=== PATIENT | male | born 1940 | race Caucasian/White ===

== ENCOUNTER → 2017-06-13 | Outpatient (CLI) | payer MEDICARE, BC ==
[~2017-06-13] MED LIST: APIX5TAB PO; DIGO0.12 PO; LISI10TA3 PO
[2017-06-13 09:23] LABS: BASOPHIL % 0.9 % (0.0-2.0); EOSINOPHIL # 0.2 TH/MM3 (0-0.4); EOSINOPHIL % 4.4 % (0.0-4.0); HEMATOCRIT 41.4 % (39.0-51.0); HEMOGLOBIN 13.4 GM/DL (13.0-17.0); LYMPH % 22.6 % (9.0-44.0); LYMPHOCYTE # 1.1 TH/MM3 (1.0-4.8); MEAN CELL VOLUME 84.4 FL (80.0-100.0); MEAN CORPUSCULAR HEMOGLOBIN 27.4 PG (27.0-34.0); MEAN CORPUSCULAR HGB CONC 32.5 % (32.0-36.0); MEAN PLATELET VOLUME 9.5 FL (7.0-11.0); MONO % 10.7 % (0.0-8.0); MONOCYTE # 0.5 TH/MM3 (0-0.9); NEUT % 61.4 % (16.0-70.0); PLATELET COUNT 173 TH/MM3 (150-450); RED CELL DISTRIBUTION WIDTH 14.8 % (11.6-17.2); WHITE BLOOD COUNT 4.9 TH/MM3 (4.0-11.0)
[2017-06-13 09:34] LABS: INTERNATIONAL NORMALIZED RATIO 1.1 RATIO; PROTHROMBIN TIME - PATIENT 10.8 SEC (9.8-11.6)
[2017-06-13 09:40] LABS: BILIRUBIN, URINE NEG (NEG); BLOOD, URINE NEG (NEG); GLUCOSE,URINE NEG (NEG); HYALINE CAST, URINE 4 /lpf (RARE); KETONE, URINE NEG (NEG); MUCUS URINE FEW /lpf (OCC); NITRITE,URINE NEG (NEG); SQUAMOUS EPITHELIAL CELL URINE <1 /hpf (0-5); URINE COLOR YELLOW (YELLW/STRAW); URINE LEUKOCYTE ESTERASE TRACE (NEG)
[2017-06-13 09:46] LABS: CALCIUM 8.5 MG/DL (8.5-10.1); CREATININE 0.99 MG/DL (0.60-1.30)
--- NOTE | 2017-06-14 16:17 | EKG ---
Date Performed: 06/13/2017 Time Performed: 08:16:35 PTAGE: 77 years EKG: ELECTRONIC VENTRICULAR PACEMAKER ABNORMAL RHYTHM ECG NO PREVIOUS TRACING DOCTOR: Errol Melendez Interpretating Date/Time 06/14/2017 16:15:46
== END ==
LOC: CPRE 07:57
PROVIDERS: ATTEND Orthopaedic Surgery Orthopaedic Surgery of the Spine
DX: Z01.812 Encounter for preprocedural laboratory examination (principal); Z01.810 Encounter for preprocedural cardiovascular examination; M17.11 Unilateral primary osteoarthritis, right knee; M79.609 Pain in unspecified limb; R94.31 Abnormal electrocardiogram [ECG] [EKG]; Z79.01 Long term (current) use of anticoagulants
CPT/HCPCS: 36415; 80048; 81001; 85025; 85610; 85730; 93005

== ENCOUNTER 2017-06-28 05:42 | Inpatient (IN) | payer MEDICARE, BC ==
[~2017-06-28] VITALS: Ht 177.8 cm; Wt 123.9 kg
[2017-06-28] MEDS ORDERED: METOPROLOL TARTRATE 25 MG TAB PO PRN (06:15)
[2017-06-28] MEDS ORDERED: POVIDONE IODINE 5% (ANTISEPSIS KIT) 4 APPLICATIONS EACH NARE PRN (06:15)
[2017-06-28] MEDS ORDERED: CEFAZOLIN INJ 2,000 MG in SODIUM CHLORIDE 0.9% INJ 100 ML IV SCH (06:15)
[2017-06-28] MEDS ORDERED: LACTATED RINGER'S 1000 ML IV PRN (06:15)
[2017-06-28] MEDS ORDERED: EXPAREL PERI-ARTICULAR INJECTION (TOTAL VOL. 60 ML) P-ARTICULR SCH ×4 (06:15→09:00)
[2017-06-28] MEDS ORDERED: SODIUM CHLORID 0.9% 500 ML IV PRN (06:15)
[2017-06-28] MEDS ORDERED: CHLORHEXIDINE GLUCONATE 4% SOLN 120 ML BTL TOPICAL SCH (06:15)
[2017-06-28] MEDS ORDERED: CHLORHEXIDINE GLUCONATE 2 % 1 PACK (2 CLOTHS) TOPICAL PRN (06:15)
[2017-06-28] MEDS ORDERED: VANCOMYCIN 1000 MG/NS 250 ML (for <70 kg) IV SCH ×2 (06:15)
[2017-06-28] MEDS ORDERED: VANCOMYCIN 1 GM/200 ML INJ 200 ML IV ONE (06:30)
[2017-06-28 06:45] VITALS: PULSE 60
[2017-06-28] MEDS ORDERED: BUPIVACAINE PF 0.75% DEX-WATER INJ 2 ML AMP ONE (07:06)
[2017-06-28] MEDS ORDERED: LIDOCAINE HCL 1% PF 5 ML AMPULE ONE (07:06)
[2017-06-28] MEDS ORDERED: MIDAZOLAM HCL 2 MG/2 ML VIAL ONE (07:56)
[2017-06-28] MEDS ORDERED: DEXAMETHASONE SOD PHOS 4 MG/ML VIAL ONE (07:56)
[2017-06-28] MEDS ORDERED: BUPIVACAINE LIPOSOME PF 1.3% 20 ML VIAL ONE (07:57)
[2017-06-28] MEDS ORDERED: GENTAMICIN SULFATE 80 MG/2 ML VIAL ONE (08:12)
[2017-06-28] MEDS ORDERED: BUPIVACAINE/EPINEPHRINE 0.25% 50 ML VIAL ONE (08:12)
[2017-06-28] MEDS ORDERED: ACETAMINOPHEN 1000 MG/100 ML 100 ML IV ONE (08:28)
[2017-06-28] MEDS ORDERED: FAMOTIDINE 20 MG/2 ML VIAL ONE (08:28)
[2017-06-28] MEDS ORDERED: TRANEXAMIC ACID IV SCH (09:00)
[2017-06-28] MEDS ORDERED: SODIUM CHLORIDE 0.9% IV SCH (09:00)
[2017-06-28] MEDS ORDERED: SUGAMMADEX SODIUM 200 MG/2 ML VIAL IV PUSH ONE (11:58)
[2017-06-28] MEDS ORDERED: PHENYLEPH/NS 1000 MCG/10 ML SYR IV ONE (12:00)
[2017-06-28] MEDS ORDERED: ONDANSETRON HCL 4 MG/2 ML VIAL IV PUSH ONE (12:00)
[2017-06-28] MEDS ORDERED: DEXAMETHASONE SOD PHOS 4 MG/ML VIAL IV ONE (12:00)
[2017-06-28] MEDS ORDERED: ROCURONIUM INJ 50 MG/5 ML SYRINGE IV PUSH ONE (12:00)
[2017-06-28] MEDS ORDERED: LIDOCAINE HCL 1% PF 5 ML SYRINGE OTHER ONE (12:00)
[2017-06-28] MEDS ORDERED: PROPOFOL 200 MG/20 ML AMP IV ONE (12:00)
[2017-06-28] MEDS ORDERED: LACTATED RINGER'S 1000 ML INJ 1,000 ML IV ONE (12:00)
[2017-06-28] MEDS ORDERED: DO NOT ADM ANY ANTICOAGULANT DRUGS PRN (12:23)
[2017-06-28] MEDS ORDERED: MISCELLANEOUS NURSING INFORMATION XX PRN (12:30)
[2017-06-28] MEDS ORDERED: NALOXONE HCL 0.4 MG/ML AMP IV PUSH PRN (12:30)
[2017-06-28] MEDS ORDERED: ASPIRIN EC 81 MG TABEC PO ONE (12:30)
[2017-06-28] MEDS ORDERED: TEMAZEPAM 15 MG CAP PO PRN (12:30)
[2017-06-28] MEDS ORDERED: MISCELLANEOUS PHARMACY INFORMATION XX ONE (12:30)
[2017-06-28] MEDS ORDERED: MORPHINE SULFATE 8 MG/ML INJ IM PRN (12:30)
[2017-06-28] MEDS ORDERED: Post-op Orders (for Pharmacy) XX ONE (12:30)
[2017-06-28] MEDS ORDERED: *morphine SULFATE 8 MG/ML PERIprocedure ONLY ONE (12:31)
--- NOTE | 2017-06-28 12:31 | PD.OP ---
cc: Asif Hui MD Operative Report Date of Surgery: Jun 28, 2017 Preoperative Diagnosis: Osteoarthritis right knee. Valgus deformity right knee. Loose body right knee, large Postoperative Diagnosis: Same Procedure: Right total knee replacement arthroplasty, posterior stabilized component Anesthesia: Gen. Surgeon: Asif Hui [employer] Teacher(s): RANDI Moy Operation and Findings: EBL: 100 cc INDICATION: This patient presents with long-standing arthritis of the knee. There is a significant valgus deformity of 13 and evidence of a very large intra-articular loose body in the suprapatellar pouch Attachment record documents conservative measures. The patient now presents for surgical treatment. NOTE: Shabnam Moy PA-C was present for the entire surgical procedure as my first officer. In my medical opinion her skill and care was necessary for proper management of this patient. TOURNIQUET TIME: 65 minutes COMPANY: [employer] FEMUR: Size 8, right, posterior stabilized TIBIA: Size 9, fixed bearing PATELLA: 38 mm POLYETHYLENE INSERT: 10 mm PROCEDURE: This patient was brought the operating room and anesthetized in the supine position. The patient was positioned supine on the table. The tourniquet was placed about the thigh, and the leg was scrubbed with alcohol followed by Hibiclens followed by ChloraPrep and draped sterilely. A timeout was done, and antibiotics were given. After exsanguination the tourniquet was inflated to 250 mmHg. An anterior incision was made and a median parapatellar arthrotomy was performed. The patella was released laterally and subluxed allowing freehand cut of the patella which was then sized. A metal cap was placed over the exposed patellar surface for protection. There was a very large intra-articular loose body which was resected. It measured over his 5 cm long by 3-1/2 cm wide and 2-1/2 mm in thickness. There were multiple other loose bodies also removed. A company pilot hole was placed in the distal femur allowing a 6 valgus cut removing 10 mm from the distal femur. Anterior posterior and chamfer cuts were made. The posterior stabilize osteotomy was made. The attention was directed to the tibia. Retractors were positioned. The external alignment guide was used allowing the lateral tibia to be used as referencing guide and cut utilizing an oscillating saw taking care to avoid any injury to the surrounding soft tissues. This was sized properly. Trial reduction showed that the insert fit nicely. The patient had range of motion extension 0 flexion 125. A medial release not necessary. The bony surfaces prepared. On the back table 2 packets of methylmethacrylate were mixed. The components were cemented. Excess cement was removed. The tourniquet let down and hemostasis was controlled. The final plastic insert was inserted. Range of motion was the same as previously noted. Local anesthesia was used for a circumferential block. The arthrotomy was repaired with interrupted #1 Vicryl suture, subcutaneous tissue 2-0 Vicryl suture and skin with metallic jeremiah A sterile dressing was applied. Sponge counts, needle counts and instrument counts were all correct. The patient tolerated procedure well and was taken to recovery in satisfactory condition. FINDINGS: There was evidence of a significant valgus deformity of the knee. This was corrected with the osteotomies and soft tissue releases. Alignment was satisfactory. There was no complication that was appreciated. Asif Hui MD Jun 28, 2017 12:31
[2017-06-28] MEDS ORDERED: APIX5TAB PO (12:34)
[2017-06-28] MEDS ORDERED: OXYC1TAB63 PO (12:34)
[2017-06-28] MEDS ORDERED: APIX2.5T PO (12:39)
[2017-06-28] MEDS: LACTATED RINGER'S 1000 ML INJ 1,000 ML IV SCH (13:00)
--- NOTE | 2017-06-28 13:24 | RADRPT ---
EXAM DATE/TIME: 06/28/2017 13:00 [facility] COMPARISON: No previous studies available for comparison. INDICATIONS : Post-op right total knee. MEDICAL HISTORY : None. SURGICAL HISTORY : None. ENCOUNTER: Initial ACUITY: 1 day PAIN SCORE: 0/10 LOCATION: Right knee FINDINGS: Patient has just had a right total knee arthroplasty. No fractures are demonstrated. Alignment appear s normal. No evidence of hardware failure or loosening. CONCLUSION: Right total knee arthroplasty without evidence of an acute complication. Titus Messer MD on June 28, 2017 at 13:21 Board Certified Radiologist. This report was verified electronically.
[2017-06-28] MEDS: oxyCODONE/ACETAMINOPHEN 5 MG/325 MG TAB PO PRN ×2 (15:02→20:01)
[2017-06-28 16:00] VITALS: BP 167/79; PULSE 63; RESP 18; TEMP 98; O2SAT 95
[2017-06-28 19:18] VITALS: BP 117/83; PULSE 64; RESP 18; TEMP 97.3; O2SAT 96
[2017-06-28] MEDS: SENNOSIDES 8.6 MG TAB PO SCH (20:00)
[2017-06-28] MEDS: MAGNESIUM HYDROXIDE SUSP 30 ML CUP PO SCH (20:00)
[2017-06-28 20:11] VITALS: O2SAT 95
[2017-06-28] MEDS ORDERED: ASPIRIN EC 81 MG TABEC PO SCH (21:00)
[2017-06-28 23:54] VITALS: BP 136/64; PULSE 62; RESP 18; TEMP 97.9; O2SAT 96
[2017-06-29] VITALS (8 sets, daily range): BP systolic 114–162; BP diastolic 57–79; PULSE 59–66; RESP 16–18; TEMP 97.4–98.1; O2SAT 95–99
[2017-06-29] MEDS: LACTATED RINGER'S 1000 ML INJ 1,000 ML IV SCH ×2 (01:11→13:23)
[2017-06-29 05:40] LABS: HEMATOCRIT 36.3 % (39.0-51.0); HEMOGLOBIN 11.8 GM/DL (13.0-17.0)
[2017-06-29] MEDS: LISINOPRIL 10 MG TAB PO SCH (07:48)
[2017-06-29] MEDS: DIGOXIN 0.125 MG TAB PO SCH (07:49)
[2017-06-29] MEDS: APIXABAN 2.5 MG TABLET PO SCH ×5 (07:49→20:11)
[2017-06-29] MEDS: MAGNESIUM HYDROXIDE SUSP 30 ML CUP PO SCH ×2 (07:49→20:11)
[2017-06-29] MEDS: oxyCODONE/ACETAMINOPHEN 5 MG/325 MG TAB PO PRN ×4 (07:51→20:12)
[2017-06-29] MEDS ORDERED: CPMMACHINE (08:14)
[2017-06-29] MEDS ORDERED: WALKER WHEELS/F1 MIS (08:15)
[2017-06-29] MEDS ORDERED: COMMODE 3-IN-11 MIS (08:16)
--- NOTE | 2017-06-29 08:18 | HHI.FF ---
Face to Face Verification Diagnosis: (1) Osteoarthritis of right knee Physical Therapy Gait training, Safety evaluation, Transfer training, bed to chair Knee: Total knee, Protocol: Right, Full weight bearing Canvas Knee Splint: When in bed & 2 pillows btw thighs Right LE Weight Bearing: WB as tolerated Additional Instructions PT 3-4x/week for 2 weeks. WBAT Right LE. TKA protocol. CPM bid as tolerated. Begin at 60 flexion with goal of 100 flexion. CKS when in bed for 3-4 weeks. Nursing RN Days per Week: 4 x Week(s): 1 RN: 3 days/week x 2 weeks (THis is incorrect - RN for 2x/week for 1 weeks IS correct. I do not know why this order is prepopulating) Dressing Changes: Do not change dressing Additional Instructions 4x/wk for 1 week. Vitals assessment. Dressing assessment - do not change unless saturated. IF saturated then dry dressing changes daily (clean with alcohol and apply coverderm dressing.) I have seen patient Virgil Poole on 06/29/17. My clinical findings support the need for the requested home health care services because: Limited ability to care for self High risk of falls I certify that my clinical findings support that this patient is homebound because: Post-op weakness Unsteady gait/balance Shabnam Moy Jun 29, 2017 08:18
--- NOTE | 2017-06-29 08:19 | HHI.DS ---
Discharge Summary Admission Date Jun 28, 2017 at 05:42 Discharge Date: Jun 30, 2017 Admitting Diagnosis see below Diagnosis: (1) Osteoarthritis of right knee Diagnosis: Principal ICD Codes: M17.11 - Unilateral primary osteoarthritis, right knee Procedures Right total knee arthroplasty Brief History This is a 77 year old male patient with increased right knee pain over the last 1 1/2 years. He had a previous knee fracture 40 years ago, treated surgically. He did well until a year ago when his knee pain began to increase and he noticed a worsening angulation to the knee. He sought out treatment. Xrays were taken showing moderate to severe arthritis. He began using a cane. He was given a cortisone injection 03/2017. He could not take NSAIDs from being on Eliquis. Eventually surgical treatment was recommended in the form of right total knee arthroplasty. He agreed and now presents for the above procedure. CBC/BMP: 06/29/17 0414 Significant Findings Laboratory Tests Test 06/29/17 04:14 Hemoglobin 11.8 GM/DL (13.0-17.0) Hematocrit 36.3 % (39.0-51.0) Hospital Course Surgical treatment was performed on the day of admission without complication. He recovered well in PACU and was transferred to the orthopaedic floor. Pain was controlled with IV and oral medications. DVT prophylaxis was initiated with Eliquis 2.5mg as he was taking this preoperatively. He struggled with some increased postoperative bleeding at the incision but that improved. He was compliant with physical therapy and all TKA precautions including use of his splint and CPM machine. After 2 days he was found to be stable and discharged home with home health care. He was educated to pursue a high fiber diet, to ice the operative site 3-5 times a day for the next 5 days, and to continue his physical therapy. He was given prescriptions for Percocet 5mg and Eliquis 2.5mg BID. Pt Condition on Discharge: Stable Discharge Disposition: Disch w/ Home Health Serv Discharge Instructions Diet Instructions: As Tolerated, No Restrictions, High Fiber Diet Activities You Can Perform: Weight Bearing as Nicole Activities to Avoid: Strenuous Activity New Medications: Commode 3-in-1 (Commode 3-in-1) 1 Mis Mis EA .XX DIRECTED, #1 0 Refills CPM-Continuous Passive Motion Machine (CPM-Continuous Passive Motion Machine) 1 Ea Device EA .XX DIRECTED, #1 0 Refills Walker with Front Wheels (Walker with Front Wheels) 1 Mis Mis EA .XX DIRECTED, #1 0 Refills Apixaban (Eliquis) 2.5 Mg Tab 2.5 MG PO BID for Prevent Blood Clot, #10 TAB After 5 days resume preoperative dosage Oxycodone HCl/Acetaminophen (Oxycodone-Acetaminophen 5-325) 5 Mg-325 Mg Tablet 1 TAB PO Q4H PRN for Pain, #42 TAB Continued Medications: Digoxin (Digoxin) 0.125 Mg Tab 0.125 MG PO DAILY for Regulate Heart Beat, #30 TAB 0 Refills Lisinopril (Lisinopril) 10 Mg Tab 10 MG PO DAILY, #30 TAB 0 Refills Shabnam Moy Jun 29, 2017 08:19
--- NOTE | 2017-06-29 08:19 | HHI.DCPOC ---
Discharge Care Plan Diagnosis: (1) Osteoarthritis of right knee Your Health Problems Are: Difficulty with ADL Incision/Drains Swelling Bleeding Tendency Goals to Promote Your Health * To prevent worsening of your condition and complications * To maintain your health at the optimal level Directions to Meet Your Goals Take your medications as prescribed Follow your dietary instruction Follow activity as directed Keep your appointments as scheduled Take your immunizations and boosters as scheduled If your symptoms worsen call your PCP, if no PCP go to Urgent Care Center or Emergency Room Smoking is Dangerous to Your Health. Avoid second hand smoke Call the 24-hour hour crisis hotline for domestic abuse at Shabnam Moy Jun 29, 2017 08:19
--- NOTE | 2017-06-29 13:15 | PD.ORT.PN ---
Subjective Subjective Remarks Doing well. Pain well controlled. Some concern because of increased bleeding and oozing last night and today. No new leg pain. Is already starting to lift his leg. States 'its so straight!'. He is pleased with his RLE alignment. Denies any new CP or SOB. Objective Vitals Vital Signs Date Time Temp Pulse Resp B/P (MAP) Pulse Ox O2 Delivery O2 Flow Rate FiO2 06/29/17 08:00 97.4 60 16 152/72 (98) 97 06/29/17 04:40 97.8 59 18 162/79 (106) 99 06/28/17 23:54 97.9 62 18 136/64 (88) 96 06/28/17 20:11 95 21 06/28/17 19:18 97.3 64 18 117/83 (94) 96 06/28/17 16:00 98.0 63 18 167/79 (108) 95 06/28/17 15:30 97.5 60 16 167/87 (113) 96 06/28/17 15:00 60 14 167/87 (113) 95 06/28/17 14:00 60 14 163/83 (109) 97 06/28/17 13:45 60 15 161/80 (107) 97 06/28/17 13:30 60 14 166/78 (107) 96 06/28/17 13:15 64 16 171/79 (109) 98 I/O 06/28/17 06/28/17 06/28/17 06/29/17 06/29/17 06/29/17 07:00 15:00 23:00 07:00 15:00 23:00 Intake Total 1600 ml 100 ml 640 ml Output Total 450 ml 650 ml Balance 1150 ml 100 ml -10 ml Intake Oral 640 ml IV Total 100 ml Other 1600 ml Output Urine Total 250 ml 650 ml Estimated Blood Loss 200 ml # Bowel Movements 0 Result Diagram: 06/29/17 0414 Procedures Right total knee arthroplasty Objective Remarks Laying in bed at bedside NAD VSS RLE Dressing intact, saturated with SS drainage, mild- moderate swelling, effusion present, +motor at, +sens distal, Mild pedal edema, +nvi Neg homans Assessment & Plan Ortho Post Op Day #: 1 Problem List: (1) Osteoarthritis of right knee ICD Codes: M17.11 - Unilateral primary osteoarthritis, right knee Qualifiers: Qualified Codes: M17.11 - Unilateral primary osteoarthritis, right knee Assessment and Plan pod#1 s/p R TKA, post stab (resection calcified osteophyte) Doing well. Pain well controlled. Increased drainage right knee. We will change the dressing now. If this continues, dry dressing changes daily. Aggressive use of ice right knee, 3-5 times daily. PT - WBAT RLE. TKA protocol. Ok for cpm bid as tolerated. Restart Eliquis tonight. IS encouraged. Ok to d/c home today w [facility]. If any concerns ok to hold discharge until tomorrow am. F2F written. Shabnam Moy Jun 29, 2017 13:15
[2017-06-29] MEDS: SENNOSIDES 8.6 MG TAB PO SCH (20:11)
[2017-06-30] MEDS: oxyCODONE/ACETAMINOPHEN 5 MG/325 MG TAB PO PRN ×3 (00:53→10:13)
[2017-06-30] MEDS: LACTATED RINGER'S 1000 ML INJ 1,000 ML IV SCH (01:53)
[2017-06-30 03:25] VITALS: BP 125/76; PULSE 60; RESP 18; TEMP 97.9; O2SAT 60
[2017-06-30 08:00] VITALS: BP 135/65; PULSE 65; RESP 18; TEMP 97.7; O2SAT 97
--- NOTE | 2017-06-30 08:34 | PD.ORT.PN ---
Subjective Subjective Remarks Still doing well. Pain controlled today. He stayed overnight last night due to some continued bleeding yesterday afternoon. He states that 'its been fine' . His nurse states the oozing and bleeding has slowed quite a bit. He has no complaints otherwise. Denies any new CP or SOB. Objective Vitals Vital Signs Date Time Temp Pulse Resp B/P (MAP) Pulse Ox O2 Delivery O2 Flow Rate FiO2 06/30/17 03:25 97.9 60 18 125/76 (92) 60 06/29/17 23:09 97.6 62 16 119/57 (77) 96 06/29/17 20:00 97.7 60 16 114/58 (76) 98 06/29/17 18:30 97 21 06/29/17 16:30 18 06/29/17 16:00 98.1 63 16 134/64 (87) 97 06/29/17 12:38 95 06/29/17 12:00 97.8 66 16 119/59 (79) 98 I/O 06/29/17 06/29/17 06/29/17 06/30/17 06/30/17 06/30/17 07:00 15:00 23:00 07:00 15:00 23:00 Intake Total 1240 ml 360 ml Output Total 650 ml 375 ml Balance 590 ml -15 ml Intake Oral 1240 ml 360 ml Output Urine Total 650 ml 375 ml # Voids 3 # Bowel Movements 0 0 Result Diagram: 06/29/17 0414 Procedures Right total knee arthroplasty Objective Remarks Walking around room w walker NAD VSS RLE Dressing intact, some SS spotting at proximal dressing (mild), mild- moderate swelling, effusion present, +motor at, +sens distal, Mild pedal edema, +nvi Neg homans Assessment & Plan Ortho Post Op Day #: 2 Problem List: (1) Osteoarthritis of right knee ICD Codes: M17.11 - Unilateral primary osteoarthritis, right knee Qualifiers: Qualified Codes: M17.11 - Unilateral primary osteoarthritis, right knee Assessment and Plan pod#2 s/p R TKA, post stab (resection calcified osteophyte) Doing well. Pain well controlled. Drainage has slowed since yesterday. D/C home today after PT. Aggressive use of ice right knee, 3-5 times daily to assist with mild drainage and moderate swelling. PT - WBAT RLE. TKA protocol. Ok for cpm bid as tolerated. Eliquis 2.5mg bid. IS encouraged. F/U in 2 weeks as scheduled. F2F written. Shabnam Moy Jun 30, 2017 08:34
[2017-06-30] MEDS: APIXABAN 2.5 MG TABLET PO SCH (10:11)
[2017-06-30] MEDS: LISINOPRIL 10 MG TAB PO SCH (10:11)
[2017-06-30] MEDS: DIGOXIN 0.125 MG TAB PO SCH (10:11)
[2017-06-30] MEDS: MAGNESIUM HYDROXIDE SUSP 30 ML CUP PO SCH (10:21)
== END 2017-06-30 11:02 | disposition home health service (06) | DRG 470 ==
LOC: HSDI 05:42 → N06A 15:53
PROVIDERS: ADMIT Orthopaedic Surgery Orthopaedic Surgery of the Spine; ATTEND Orthopaedic Surgery Orthopaedic Surgery of the Spine
PROC: 0SCC0ZZ Extirpation of Matter from Right Knee Joint, Open Approach (ICD-10-PCS; 2017-06-28)
PROC: 3E0T3BZ Introduction of Anesthetic Agent into Peripheral Nerves and Plexi, Percutaneous Approach (ICD-10-PCS; 2017-06-28)
PROC: 0SRC0J9 Replacement of Right Knee Joint with Synthetic Substitute, Cemented, Open Approach (ICD-10-PCS; principal; 2017-06-28 09:39)
DX: M17.11 Unilateral primary osteoarthritis, right knee (principal); K50.90 Crohn's disease, unspecified, without complications; I48.91 Unspecified atrial fibrillation; I10 Essential (primary) hypertension; Z96.643 Presence of artificial hip joint, bilateral; M21.061 Valgus deformity, not elsewhere classified, right knee; F10.10 Alcohol abuse, uncomplicated; M23.41 Loose body in knee, right knee; Z87.891 Personal history of nicotine dependence; Z98.84 Bariatric surgery status; Z95.0 Presence of cardiac pacemaker
CPT/HCPCS: 73560; 85014; 85018; 86850; 86900; 86901; 86920; 94150; C1776; C9290; J0131; J0690; J1100; J1580; J2250; J2270; J2370; J2405; J3010; J3370; J7050; J7120; L1830